=== PATIENT | female | born 1990 | race Caucasian/White ===

== ENCOUNTER 2016-05-19 00:44 | Inpatient (IN) | payer MEDICAID ==
[2016-05-19] VITALS (10 sets, daily range): BP systolic 104–124; RESP 16–20; TEMP 98–98.3; Ht 165.1 cm; Wt 61.7 kg
[~2016-05-19] VITALS: Ht 165.1 cm; Wt 61.7 kg
[2016-05-19] MEDS ORDERED: LIDOCAINE 1% BUFFERED 1 ML SYR INTRADERM PRN (01:25)
[2016-05-19] MEDS ORDERED: FAMOTIDINE 20 MG INJ IV PRN (01:25)
[2016-05-19] MEDS ORDERED: METOCLOPRAMIDE 10 MG/2 ML VIAL IV PUSH PRN (01:25)
[2016-05-19] MEDS ORDERED: LIDOCAINE 1% 30 ML PF INFILTRATE ONE (01:25)
[2016-05-19] MEDS ORDERED: ONDANSETRON 4 MG VIAL IV PRN (01:25)
[2016-05-19] MEDS ORDERED: ALU/MAG/SIM 30 ML UDC PO PRN (01:25)
[2016-05-19] MEDS ORDERED: FAMOTIDINE 20 MG TAB PO PRN (01:25)
[2016-05-19] MEDS ORDERED: TERBUTALINE 1 MG/ML VIAL SUBQ PRN (01:25)
[2016-05-19] MEDS ORDERED: ACETAMINOPHEN 325 MG TAB PO PRN (01:25)
[2016-05-19] MEDS ORDERED: PROMETHAZINE 25 MG/ML VIAL IV PRN (01:25)
[2016-05-19] MEDS: LACT RINGERS 1,000 ML IV SCH ×3 (01:50→08:32)
[2016-05-19] MEDS ORDERED: PHARMACY TO DOSE GENTAMICIN IV PRN (07:35)
[2016-05-19] MEDS ORDERED: CLINDAMYCIN 900 MG in DEXTROSE 5% 50 ML IV PRN (07:35)
[2016-05-19] MEDS ORDERED: LIDOCAINE 2% 5 ML IV ONE (07:43)
[2016-05-19] MEDS ORDERED: GENTAMICIN 80MG/2ML VIAL IV ONE (07:45)
[2016-05-19] MEDS ORDERED: LIDOCAINE 1% 30 ML PF ONE (07:49)
[2016-05-19] MEDS ORDERED: ROPIV/FENT 0.2%-2MCG/ML 100 ML EPIDURAL ONE (07:50)
[2016-05-19] MEDS ORDERED: FENTANYL 100 MCG/2 ML AMP ONE (07:50)
[2016-05-19] MEDS ORDERED: GENTAMICIN 310 MG in SODIUM CHLORIDE 0.9% 100 ML IV ONE (07:50)
[2016-05-19] MEDS ORDERED: SODIUM CHLORIDE 0.9% 500 ML IV PRN (09:00)
[2016-05-19] MEDS ORDERED: LACT RINGERS 500 ML IV ONE (09:00)
[2016-05-19] MEDS ORDERED: FENTANYL 100 MCG/2 ML AMP EPIDURAL ONE (09:00)
[2016-05-19] MEDS ORDERED: LACT RINGERS 500 ML IV PRN (09:00)
[2016-05-19] MEDS ORDERED: ROPIV/FENT 0.2%-2MCG/ML 100 ML EPIDURAL SCH (09:00)
[2016-05-19] MEDS: OXYTOCIN 15 UNITS/250 ML NS 250 ML IV SCH ×2 (14:24→14:40)
[2016-05-19] MEDS ORDERED: MISOPROSTOL 100 MCG TAB RECTAL ONE (14:30)
[2016-05-19] MEDS ORDERED: MEASLES,MUMPS,RUBELLA VAC SUBQ.VACC ONE (14:35)
[2016-05-19] MEDS ORDERED: BISACODYL 10 MG SUPP RECTAL PRN (14:35)
[2016-05-19] MEDS ORDERED: MAG HYDROX 30 ML UDC PO PRN (14:35)
[2016-05-19] MEDS ORDERED: TDaP 0.5 ML VIAL IM.VACC ONE (14:35)
[2016-05-19] MEDS ORDERED: DERMOPLAST SPRAY TOPICAL PRN (14:35)
[2016-05-19] MEDS ORDERED: ASTRINGENT MED PADS 40'S TOPICAL PRN (14:35)
[2016-05-19] MEDS ORDERED: OXYTOCIN 15 UNITS/250 ML NS 250 ML IV SCH (14:35)
[2016-05-19] MEDS: Ibuprofen 600 MG TAB PO SCH ×2 (17:22→23:41)
[2016-05-19] MEDS ORDERED: **ONLY ANESTEHSIA MAY ORDER OPIATES WHILE ON EPIDURAL XX SCH (20:00)
[2016-05-19] MEDS ORDERED: ZOLPIDEM 5 MG TAB PO PRN (21:00)
[2016-05-19] MEDS: OXYCODONE/APAP 5/325 TAB PO PRN (23:40)
[2016-05-20 01:07] VITALS: BP_SYST 105; RESP 17; TEMP 98.1
[2016-05-20] MEDS: OXYCODONE/APAP 5/325 TAB PO PRN ×3 (04:38→21:27)
[2016-05-20] MEDS: Ibuprofen 600 MG TAB PO SCH ×3 (05:13→18:38)
[2016-05-20 05:46] VITALS: BP_SYST 91; RESP 18; TEMP 98.4
[2016-05-20 08:58] VITALS: BP_SYST 98; RESP 18; TEMP 97.2
[2016-05-20] MEDS: DOCUSATE SOD 100 MG CAP PO SCH (09:21)
[2016-05-20 13:09] VITALS: BP_SYST 98; RESP 16; TEMP 97.1
[2016-05-20 16:53] VITALS: BP_SYST 95; RESP 18; TEMP 97.2
[2016-05-21] MEDS: Ibuprofen 600 MG TAB PO SCH ×3 (00:38→11:32)
[2016-05-21 05:18] VITALS: BP_SYST 97; RESP 16; TEMP 97.2
[2016-05-21] MEDS: OXYCODONE/APAP 5/325 TAB PO PRN (05:41)
[2016-05-21] MEDS: DOCUSATE SOD 100 MG CAP PO SCH (08:51)
[2016-05-21 09:07] VITALS: BP_SYST 101; RESP 17; TEMP 97.3
[2016-05-21 13:24] VITALS: BP_SYST 101; RESP 17; TEMP 97.3
[2016-05-21 13:28] VITALS: BP_SYST 124; RESP 18; TEMP 97.9
== END 2016-05-21 14:20 | disposition home or self-care (01) | DRG 775 ==
LOC: LDOP 00:44 → LD 01:25 → OB 18:20
PROVIDERS: ADMIT Obstetrics & Gynecology; ATTEND Obstetrics & Gynecology
PROC: 10E0XZZ Delivery of Products of Conception, External Approach (ICD-10-PCS; principal; 2016-05-19)
PROC: 0W8NXZZ Division of Female Perineum, External Approach (ICD-10-PCS; 2016-05-19)
DX: O80 Encounter for full-term uncomplicated delivery (principal); Z37.0 Single live birth; Z3A.39 39 weeks gestation of pregnancy
CPT/HCPCS: 82803; 85025